=== PATIENT | female | born 1940 | race Caucasian/White ===

== ENCOUNTER 2017-09-09 08:20 | Outpatient (CLI) | payer MEDICARE | END 2017-09-09 08:21 | disposition home or self-care (01) | LOC: BICMAMMO 08:20 | PROVIDERS: ATTEND Obstetrics & Gynecology | DX: Z12.31 Encounter for screening mammogram for malignant neoplasm of breast (principal); Z80.3 Family history of malignant neoplasm of breast | CPT/HCPCS: 77063; 77067 ==

== ENCOUNTER 2018-05-29 05:21 | Inpatient (IN) | payer MEDICARE ==
[2018-05-29] MEDS ORDERED: Ondansetron PF 4 MG/2 ML Vial ONE (06:18)
[2018-05-29 06:21] LABS: #Lymphocytes 1.2 thou/uL (1.20-3.40); #Monocytes 1.3 thou/uL (0.11-0.59); #Neutrophils 11.7 thou/uL (1.40-6.50); %Basophils 0.2 % (0.0-1.0); %Lymphocytes 8.3 % (21.0-51.0); %Monocytes 9.1 % (0.0-10.0); %Neutrophils 82.5 % (42.0-75.0); Hemoglobin 14.8 g/dL (12.0-16.0); Mean Corpuscular HGB CONC 32.8 g/dL (32.0-36.0); Mean Corpuscular Hemoglobin 30.2 pg (27.0-31.0); Mean Corpuscular Volume 92.1 fL (78.0-98.0); Mean Platelet Volume 7.3 fL (7.4-10.4); Platelet Count 245 thou/uL (130-400); RBC Distribution Width 12.5 % (11.5-14.5); Red Blood Cell (RBC) Count 4.89 mill/uL (4.20-5.40); White Blood Cell (WBC) Count 14.2 thou/uL (4.8-10.8)
[2018-05-29] MEDS ORDERED: Pantoprazole 40 MG VIAL ONE (06:39)
[2018-05-29 06:44] LABS: ALT (SGPT) 29 U/L (8-55); AST (SGOT) 21 U/L (5-34); Albumin 4.1 g/dL (3.4-4.8); Alkaline Phosphatase 59 U/L (40-150); Anion Gap 16 mmol/L (10-20); BUN (Urea Nitrogen) 11 mg/dL (9.8-20.1); Bilirubin, Total 0.4 mg/dL (0.2-1.2); Calc. Creatinine Clearance 0 mL/min (70-130); Calcium 9.4 mg/dL (7.8-10.44); Carbon Dioxide 21 mmol/L (23-31); Chloride 104 mmol/L (98-107); Estimated GFR-MDRD 79; Globulin 2.9 g/dL (2.4-3.5); Glucose 156 mg/dL (83-110); Lipase 8 U/L (8-78); Potassium 3.6 mmol/L (3.5-5.1); Sodium 137 mmol/L (136-145)
[2018-05-29 07:08] LABS: Bilirubin Negative (Negative); Blood, Urine Large (Negative); Clarity CLOUDY (Clear); Glucose, Urine (Dipstick) Negative (Negative); Leukocyte Small (Negative); Nitrite Negative (Negative); Protein, Urine (Dipstick) 30 mg/dL (Neg-Trace); Specific Gravity, Urine 1.025 (1.002-1.036); Urobilinogen 0.2 mg/dL (0.2-1.0); pH, Urine 5.5 (5.0-9.0)
[2018-05-29 07:11] LABS: Hyaline Casts/LPF 0-3 HYALINE CAST LPF (0-3 Hyaline); Pathc Cast-AUWi Flag 0.43 (0-2.49); RBC/HPF GREATER THAN 50-TNTC HPF (0-3)
[2018-05-29 07:29] LABS: Bacteria/HPF Rare-Few HPF (None Seen); Yeast-All Forms None Seen HPF (None Seen)
[2018-05-29] MEDS ORDERED: MEROPENEM 1 GM/50 ML 1 GM in Premix Bag 1 BAG IVPB SCH (07:30)
--- NOTE | 2018-05-29 07:52 | CT ---
CT OF THE ABDOMEN AND PELVIS WITH IV CONTRAST: INDICATION: History of abdominal pain. FINDINGS: There is prominent wall thickening involving the splenic flexure, descending colon, and sigmoid colon suspicious for diverticulitis. No drainable fluid collection is evident. A small amount of fluid i s seen within the left pericolonic gutter. There is a small-sized hiatal hernia. There is fatty infiltration of the liver. Pancreas, adrenal glands, and spleen appear within normal limits. There is a 5 cm exophytic hypodense lesion off the lateral aspect of the right kidney that cannot be fully characterized. There are moderate calcifications involving the abdominal aorta. No lymphadenopathy is evident. There is a fat-containing umbilical hernia. The bladder is decompressed. The rectum and perirectal soft tissues are unremarkable-appearing. No free fluid is evident within the pelvis. No enlarged lymph nodes are evident within the pelvis. There is scattered degenerative and osteoarthritic change. IMPRESSION: 1. Findings of noncomplicated diverticulitis involving the sigmoid colon, descending colon, and sple gertrude flexure. Recommend appropriate colon screening after abatement of the patient's acute symptoms. 2. Exophytic hypodense lesion off the lateral aspect of the right mid kidney. Followup renal ultras ound is recommended for additional characterization. 3. Fatty liver. 4. Fat-containing umbilical hernia. 5. Normal appendix. 6. Other chronic findings as above. POS: BH
[2018-05-29] MEDS ORDERED: Ondansetron ODT 4 MG TAB PO PRN (08:33)
[2018-05-29] MEDS ORDERED: Ondansetron PF 4 MG/2 ML Vial IVP PRN (08:33)
[2018-05-29] MEDS ORDERED: HumaLOG 300 UNITS/3 ML VIAL SC PRN ×2 (09:17)
[2018-05-29] MEDS ORDERED: Dextrose 5% in Water 1,000 ML IV PRN (09:17)
[2018-05-29] MEDS ORDERED: Dextrose 50% Abboject 50 ML SYRINGE SLOW IVP PRN (09:17)
[2018-05-29] MEDS: Sodium Chloride 0.9% 1,000 ML IV SCH ×2 (09:53→18:45)
[2018-05-29 10:14] VITALS: BMI 36.1
[2018-05-29] MEDS ORDERED: ISOVUE-370 76%-LOCM 1 ML ONE (10:29)
--- NOTE | 2018-05-29 11:22 | HP ---
PRIMARY CARE PHYSICIAN: Dr. Yamilka Canseco. CHIEF COMPLAINT: Abdominal pain and hematochezia. HISTORY OF PRESENT ILLNESS: Ms. Osuna is a pleasant 77-year-old female with a past medical history of hypertension, gastroesophageal reflux disease, hyperlipidemia, who had presented to [facility] with her with some abdominal cramping and blood in the stool since yesterday. She had also reported some nausea, however, denied any vomiting. She denied any chest pain, shortness of breath, fever, chills, headache, or dizziness. She denied any recent travel, and denied any weight loss or weight gain. She reports that the cramping is intermittent and it comes and goes. In the emergency department during her initial workup, abdominal CT was obtained and findings of noncomplicated diverticulitis involving the sigmoid colon, descending colon, and splenic flexure were noted along with fatty liver, fat-containing umbilical hernia. She was given IV 40 mg Protonix along with 20 mg of Bentyl. She states that her abdominal cramping and pain had improved. She was seen and examined with her at bedside, not at the moment she appears to be in no acute distress. She had not had a bowel movement so far today and does not feel like eating. It is determined that she would be admitted under observation, placed on IV antibiotics and monitored for her current symptoms. REVIEW OF SYSTEMS: All other systems reviewed and found to be negative unless mentioned in the HPI. PAST MEDICAL HISTORY: Hypertension, gastroesophageal reflux disease, hyperlipidemia. PAST SURGICAL HISTORY: Skin biopsies of breast and vaginal. PSYCHIATRIC HISTORY: None. SOCIAL HISTORY: Denies any alcohol, tobacco, or illicit drug use. She lives at home with family. KNOWN ALLERGIES: Codeine and sulfa. HOME MEDICATIONS: 1. Amlodipine/benazepril 5/20 mg one capsule oral daily. 2. Crestor 80 mg oral once daily. 3. Nexium 40 mg oral once daily. 4. Montelukast 10 mg oral once daily. 5. Aspirin 81 mg once daily. 6. Acidophilus probiotic one tablet oral every other day. PHYSICAL EXAMINATION: VITAL SIGNS: Blood pressure 134/72, pulse 89, respirations 16, temperature 98.3 degrees Fahrenheit, O2 saturations 98% on room air. GENERAL: The patient is awake, alert, and oriented x3. Mild acute distress noted due to abdominal cramping intermittently. HEENT: Atraumatic, normocephalic. Pupils round and reactive to light. Extraocular muscles intact. Moist mucous membranes noted. NECK: Soft, supple, and nontender. No JVD noted. CARDIOVASCULAR: Positive S1 and S2. Regular rate and rhythm. No murmur or rub auscultated. RESPIRATORY: Clear to auscultation bilaterally. No wheezes, rales, or rhonchi. ABDOMEN: Soft. Mild tenderness over the left side. However, no rebound, no guarding, no pulsatile masses noted. BACK: Normal range of motion. Nontender. No CVA tenderness. MUSCULOSKELETAL: Strength 5+ bilaterally in upper and lower extremities. Moves all extremities equal. No edema noted. Gait not assessed. NEUROLOGIC: Cranial nerves 2 through 12 grossly intact. No focal deficits noted. Speech intact and normal. SKIN: Warm, dry, and intact. No lesions. No ulcerations noted. PSYCHIATRIC: Good mood and affect. LABORATORY DATA: WBC 14.2, RBC 4.89, hemoglobin 14.8, platelets 245. Sodium 137, potassium 3.6, carbon dioxide 21, anion gap 16, creatinine 0.72, estimated GFR 79, glucose 156, lipase 8. Urinalysis showed 30 protein, trace ketones, large blood, small leukocyte esterase, greater than 50 rbc's, 11 to 20 wbc's, 4 to 6 squamous epithelial cells. DIAGNOSTIC IMAGING: CT of the abdomen showed findings of noncomplicated diverticulitis involving the sigmoid colon, descending colon, splenic flexure. ASSESSMENT AND PLAN: 1. Acute diverticulitis. Make the patient n.p.o. for now and advanced diet as tolerated. Place on pain management including IV Toradol as needed. Start on IV Zosyn and monitor white count and other lab work. Depending on the patient's progress, may also consider consultation for GI versus General Surgery Services. We will hold off on any consultations at the moment as the patient is stable. 2. Hypertension, currently remains stable. Place on home medications and continue to follow vital signs. 3. Diabetes mellitus. The patient used to take metformin at home, however, she states that she was taken off this quite some time ago by her primary care physician. We will place her on insulin sliding scale with Accu-Cheks during hospital course. 4. Gastroesophageal reflux disease. Continue on PPI and monitor. 5. Deep venous thrombosis and gastrointestinal prophylaxis. 6. Code status. Full code. DISPOSITION: Pending further workup and clinical findings. Job ID: [id number]
[2018-05-29] MEDS: Piperacillin/Tazobactam 3.375 GM in Sodium Chloride 0.9% 100 ML IVPB SCH ×3 (12:48→23:42)
[2018-05-29] MEDS: Famotidine/PF 20 mg/2ml Vial SLOW IVP SCH (20:42)
[2018-05-30] MEDS: Sodium Chloride 0.9% 1,000 ML IV SCH ×4 (01:17→20:36)
[2018-05-30 05:36] LABS: #Lymphocytes 2.1 thou/uL (1.20-3.40); #Monocytes 1.6 thou/uL (0.11-0.59); #Neutrophils 10.4 thou/uL (1.40-6.50); %Basophils 0.3 % (0.0-1.0); %Eosinophils 0.2 % (0.0-10.0); %Lymphocytes 14.4 % (21.0-51.0); %Monocytes 11.6 % (0.0-10.0); %Neutrophils 73.4 % (42.0-75.0); Hemoglobin 13.2 g/dL (12.0-16.0); Mean Corpuscular HGB CONC 32.6 g/dL (32.0-36.0); Mean Corpuscular Hemoglobin 30.1 pg (27.0-31.0); Mean Corpuscular Volume 92.4 fL (78.0-98.0); Mean Platelet Volume 7.5 fL (7.4-10.4); Platelet Count 213 thou/uL (130-400); RBC Distribution Width 12.5 % (11.5-14.5); Red Blood Cell (RBC) Count 4.38 mill/uL (4.20-5.40); White Blood Cell (WBC) Count 14.2 thou/uL (4.8-10.8)
[2018-05-30 05:52] LABS: Anion Gap 14 mmol/L (10-20); BUN (Urea Nitrogen) 7 mg/dL (9.8-20.1); Calc. Creatinine Clearance 99 mL/min (70-130); Calcium 8.4 mg/dL (7.8-10.44); Carbon Dioxide 21 mmol/L (23-31); Chloride 109 mmol/L (98-107); Estimated GFR-MDRD 89; Glucose 111 mg/dL (83-110); Potassium 3.5 mmol/L (3.5-5.1); Sodium 140 mmol/L (136-145)
[2018-05-30] MEDS: Piperacillin/Tazobactam 3.375 GM in Sodium Chloride 0.9% 100 ML IVPB SCH ×3 (06:29→18:29)
--- NOTE | 2018-05-30 07:59 | PDOC.PN ---
- Subjective Encounter Start Date: 05/30/18 Encounter Start Time: 07:57 Patient yling in bed, she reports feeling better, but still with intermittent abdominal pains on left side. She has not had much intake in last 24 hours. She continues on liquid diet. She denies chest pain, but does report cough, she admits to having mild COPD and using nebulizer at home. - Objective Resuscitation Status - Order Detail: 05/29/18 09:02 Resuscitation Status Routine Co-Sign Provider: Resuscitation Status: FULL: Full Resuscitation MAR Reviewed: Yes Vital Signs & Weight: Vital Signs (12 hours) Temp Pulse Resp BP Pulse Ox 05/30/18 03:38 98.2 F 72 18 132/64 95 05/30/18 00:00 99 F 79 17 132/56 L 94 L 05/29/18 20:00 99.1 F 74 18 134/64 94 L Weight Weight 185 lb I&O: 05/29/18 05/30/18 05/31/18 06:59 06:59 06:59 Intake Total 3590 Output Total 2050 Balance 1540 Result Diagrams: 05/30/18 05:02 05/30/18 05:02 Additional Labs: Accuchecks 05/30/18 05/29/18 05/29/18 05:49 20:11 16:28 POC Glucose 122 H 125 H 152 H 05/29/18 10:44 POC Glucose 133 H Radiology Reviewed by me: Yes Phys Exam - Physical Examination Constitutional: NAD HEENT: PERRLA, moist MMs, oral pharynx no lesions Neck: no nodes, full ROM Respiratory: no wheezing, clear to auscultation bilateral Cardiovascular: RRR, no significant murmur Gastrointestinal: soft, positive bowel sounds Mild tenderness left side Musculoskeletal: no edema, pulses present Neurological: non-focal, moves all 4 limbs Lymphatic: no nodes Psychiatric: normal affect, A&O x 3 Skin: no rash, cap refill <2 seconds Dx/Plan (1) Diverticulitis Code(s): K57.92 - DVTRCLI OF INTEST, PART UNSP, W/O PERF OR ABSCESS W/O BLEED Status: Acute (2) Hypertension Code(s): I10 - ESSENTIAL (PRIMARY) HYPERTENSION Status: Acute (3) Leukocytosis Code(s): D72.829 - ELEVATED WHITE BLOOD CELL COUNT, UNSPECIFIED Status: Acute (4) GERD (gastroesophageal reflux disease) Code(s): K21.9 - GASTRO-ESOPHAGEAL REFLUX DISEASE WITHOUT ESOPHAGITIS Status: Acute (5) Diabetes mellitus Code(s): E11.9 - TYPE 2 DIABETES MELLITUS WITHOUT COMPLICATIONS Status: Acute - Plan cont current plan of care, continue antibiotics * Continue IV zosyn, plan to transition to oral cipro and flagyl prior to discharge * Add duonebs as she uses this at home when needed * Continue liquid diet and advance as tolerated * Continue home medications * Discharge likely once she is able to tolerate oral intake
[2018-05-30] MEDS ORDERED: ROSUVASTATIN CALCIUM PO SCH (09:00)
[2018-05-30] MEDS: Lactinex Tablet PO SCH (09:27)
[2018-05-30] MEDS: Famotidine/PF 20 mg/2ml Vial SLOW IVP SCH ×2 (09:27→20:33)
[2018-05-30] MEDS: Aspirin 81 mg Enteric Coated Tablet PO SCH (09:27)
[2018-05-30] MEDS: Amlodipine 5 mg/Benazepril 20 mg CAP PO SCH (09:27)
--- NOTE | 2018-05-30 16:36 | PDOC.EVN ---
Event Note - Event Note Event Note: patient interviewed, findings reviewed with Andrey GAO, agree with management
[2018-05-30] MEDS ORDERED: Acetaminophen 325 MG TAB PO PRN (17:52)
[2018-05-30] MEDS: Rosuvastatin 20 MG TAB PO SCH (20:32)
[2018-05-30] MEDS: Montelukast Sodium 10 mg Tablet PO SCH (20:32)
[2018-05-31] MEDS: Piperacillin/Tazobactam 3.375 GM in Sodium Chloride 0.9% 100 ML IVPB SCH ×5 (00:52→23:37)
[2018-05-31] MEDS: Sodium Chloride 0.9% 1,000 ML IV SCH (05:50)
[2018-05-31] MEDS: Famotidine/PF 20 mg/2ml Vial SLOW IVP SCH ×2 (08:38→20:09)
[2018-05-31] MEDS: Lactinex Tablet PO SCH (08:39)
[2018-05-31] MEDS: Aspirin 81 mg Enteric Coated Tablet PO SCH (08:39)
[2018-05-31 09:03] LABS: #Eosinphils 0.1 thou/uL (0.0-0.7); #Lymphocytes 1.5 thou/uL (1.20-3.40); #Monocytes 1.2 thou/uL (0.11-0.59); %Basophils 0.2 % (0.0-1.0); %Eosinophils 0.6 % (0.0-10.0); %Monocytes 8.8 % (0.0-10.0); %Neutrophils 79.3 % (42.0-75.0); Hemoglobin 13.2 g/dL (12.0-16.0); Mean Corpuscular HGB CONC 32.7 g/dL (32.0-36.0); Mean Corpuscular Hemoglobin 30.3 pg (27.0-31.0); Mean Corpuscular Volume 92.4 fL (78.0-98.0); Mean Platelet Volume 7.4 fL (7.4-10.4); Platelet Count 219 thou/uL (130-400); RBC Distribution Width 12.4 % (11.5-14.5); Red Blood Cell (RBC) Count 4.36 mill/uL (4.20-5.40); White Blood Cell (WBC) Count 13.9 thou/uL (4.8-10.8)
[2018-05-31 09:22] LABS: Anion Gap 10 mmol/L (10-20); BUN (Urea Nitrogen) 4 mg/dL (9.8-20.1); Calc. Creatinine Clearance 92 mL/min (70-130); Calcium 8.4 mg/dL (7.8-10.44); Carbon Dioxide 23 mmol/L (23-31); Chloride 108 mmol/L (98-107); Estimated GFR-MDRD 82; Glucose 181 mg/dL (83-110); Sodium 138 mmol/L (136-145)
[2018-05-31] MEDS: Amlodipine 5 mg/Benazepril 20 mg CAP PO SCH (11:07)
--- NOTE | 2018-05-31 15:09 | PDOC.PN ---
- Subjective Encounter Start Date: 05/31/18 Encounter Start Time: 15:07 Patient lying in bed, she reports intermittent abdominal pain improved today with bentyl. Tolerated breakfast. She reports persistent loose stools but reports bleeding improved. Denies chest pain or shortness of breath. - Objective Resuscitation Status - Order Detail: 05/29/18 09:02 Resuscitation Status Routine Co-Sign Provider: Resuscitation Status: FULL: Full Resuscitation MAR Reviewed: Yes Vital Signs & Weight: Vital Signs (12 hours) Temp Pulse Resp BP Pulse Ox 05/31/18 12:43 98.4 F 88 16 140/85 97 05/31/18 08:14 98.2 F 82 16 130/74 95 05/31/18 08:00 95 05/31/18 04:00 98.4 F 74 16 136/79 93 L Weight Weight 185 lb I&O: 05/30/18 05/31/18 06/01/18 06:59 06:59 06:59 Intake Total 3590 3637 360 Output Total 2050 1100 Balance 1540 2537 360 Result Diagrams: 05/31/18 08:48 05/31/18 08:48 Additional Labs: Accuchecks 05/31/18 05/30/18 06:07 16:48 POC Glucose 119 H 97 Radiology Reviewed by me: Yes Phys Exam - Physical Examination Constitutional: NAD HEENT: PERRLA, moist MMs, oral pharynx no lesions Neck: no nodes, full ROM Respiratory: no wheezing, clear to auscultation bilateral Cardiovascular: RRR, no significant murmur Gastrointestinal: soft, positive bowel sounds mild TTP Musculoskeletal: no edema, edema present Neurological: non-focal, moves all 4 limbs Lymphatic: no nodes Psychiatric: normal affect, A&O x 3 Skin: no rash, cap refill <2 seconds Dx/Plan (1) Diverticulitis Code(s): K57.92 - DVTRCLI OF INTEST, PART UNSP, W/O PERF OR ABSCESS W/O BLEED Status: Acute (2) Hypertension Code(s): I10 - ESSENTIAL (PRIMARY) HYPERTENSION Status: Acute (3) Leukocytosis Code(s): D72.829 - ELEVATED WHITE BLOOD CELL COUNT, UNSPECIFIED Status: Acute (4) GERD (gastroesophageal reflux disease) Code(s): K21.9 - GASTRO-ESOPHAGEAL REFLUX DISEASE WITHOUT ESOPHAGITIS Status: Acute (5) Diabetes mellitus Code(s): E11.9 - TYPE 2 DIABETES MELLITUS WITHOUT COMPLICATIONS Status: Acute - Plan cont current plan of care, continue antibiotics * Continue IV abx * Replace potassium * Monitor CBC and BMP * Continue bentyl as needed * WBC trending down * We will check her in am and WBC continuing to trend down and pain controlled will likely switch to PO abx and D/C home
[2018-05-31] MEDS: Rosuvastatin 20 MG TAB PO SCH (20:08)
[2018-05-31] MEDS: Montelukast Sodium 10 mg Tablet PO SCH (20:09)
[2018-06-01] MEDS: Piperacillin/Tazobactam 3.375 GM in Sodium Chloride 0.9% 100 ML IVPB SCH ×2 (05:33→12:24)
[2018-06-01 06:31] LABS: #Eosinphils 0.2 thou/uL (0.0-0.7); #Lymphocytes 2.3 thou/uL (1.20-3.40); #Monocytes 1.4 thou/uL (0.11-0.59); #Neutrophils 9.3 thou/uL (1.40-6.50); %Basophils 0.3 % (0.0-1.0); %Eosinophils 1.9 % (0.0-10.0); %Lymphocytes 17.5 % (21.0-51.0); %Monocytes 10.3 % (0.0-10.0); Hemoglobin 13.6 g/dL (12.0-16.0); Mean Corpuscular HGB CONC 32.3 g/dL (32.0-36.0); Mean Corpuscular Hemoglobin 29.8 pg (27.0-31.0); Mean Corpuscular Volume 92.3 fL (78.0-98.0); Mean Platelet Volume 7.3 fL (7.4-10.4); Platelet Count 273 thou/uL (130-400); RBC Distribution Width 12.4 % (11.5-14.5); Red Blood Cell (RBC) Count 4.56 mill/uL (4.20-5.40); White Blood Cell (WBC) Count 13.3 thou/uL (4.8-10.8)
[2018-06-01 06:55] LABS: Anion Gap 15 mmol/L (10-20); BUN (Urea Nitrogen) 5 mg/dL (9.8-20.1); Calc. Creatinine Clearance 91 mL/min (70-130); Calcium 9.1 mg/dL (7.8-10.44); Carbon Dioxide 22 mmol/L (23-31); Chloride 105 mmol/L (98-107); Estimated GFR-MDRD 80; Glucose 103 mg/dL (83-110); Potassium 3.3 mmol/L (3.5-5.1); Sodium 139 mmol/L (136-145)
[2018-06-01] MEDS: Aspirin 81 mg Enteric Coated Tablet PO SCH (09:06)
[2018-06-01] MEDS: Amlodipine 5 mg/Benazepril 20 mg CAP PO SCH (09:07)
[2018-06-01] MEDS: Famotidine/PF 20 mg/2ml Vial SLOW IVP SCH (09:07)
[2018-06-01] MEDS: Lactinex Tablet PO SCH (09:07)
--- NOTE | 2018-06-01 13:12 | PDOC.EVN ---
Event Note - Event Note Event Note: Saw patient with [facility]. She is doing well. No abdominal pain. Tolerating liquid diet. No nausea. No abdominal TTP. CT reviewed. Has a 5 cm exophytic, hypoechoic lesion. Diverticulitis is improving. Change to regular diet. Convert to po abx. Reviewed CT with patient. She is aware of the lesion. Dr. Teixeira is aware of it and she has had prior US for evaluation. Dr. Teixeira was not concerned about it. Looks like a cyst on CT to me. Anticipate discharge in am.
[2018-06-01] MEDS: metroNIDAZOLE 500 MG TAB PO SCH ×2 (15:41→20:52)
[2018-06-01] MEDS ORDERED: Potassium Chloride 20 MEQ TAB PO SCH (17:30)
--- NOTE | 2018-06-01 17:33 | PDOC.PN ---
- Subjective Encounter Start Date: 06/01/18 Encounter Start Time: 17:32 Patient lying in bed, feels better today. No abdominal pain. She feels ready to advance to regular diabetic diet. Able to ambulate without pain. WBC trending down. Denies chest pain, shortness of breath or abdominal pain. Loose stools improving. Discussed discharge with patient, but she reports she would feel comfortable upgraded diet and watching how she tolerates - Objective Resuscitation Status - Order Detail: 05/29/18 09:02 Resuscitation Status Routine Co-Sign Provider: Resuscitation Status: FULL: Full Resuscitation MAR Reviewed: Yes Vital Signs & Weight: Vital Signs (12 hours) Temp Pulse Resp BP Pulse Ox 06/01/18 16:50 99.6 F 79 18 118/66 93 L 06/01/18 12:34 97.9 F 78 20 130/78 100 06/01/18 08:27 98.0 F 79 18 136/74 94 L Weight Weight 185 lb I&O: 05/31/18 06/01/18 06/02/18 06:59 06:59 06:59 Intake Total 3637 2560 360 Output Total 1100 Balance 2537 2560 360 Result Diagrams: 06/01/18 06:06 06/01/18 06:06 Additional Labs: Accuchecks 06/01/18 06/01/18 06/01/18 16:32 11:14 05:00 POC Glucose 115 H 90 102 05/31/18 05/31/18 20:50 16:53 POC Glucose 101 107 Phys Exam - Physical Examination Constitutional: NAD HEENT: moist MMs Neck: supple Respiratory: no wheezing, clear to auscultation bilateral Cardiovascular: RRR, no significant murmur Gastrointestinal: soft, non-tender, positive bowel sounds Musculoskeletal: no edema, pulses present Neurological: non-focal, moves all 4 limbs Lymphatic: no nodes Psychiatric: A&O x 3 Skin: cap refill <2 seconds Dx/Plan (1) Diverticulitis Code(s): K57.92 - DVTRCLI OF INTEST, PART UNSP, W/O PERF OR ABSCESS W/O BLEED Status: Acute (2) Hypertension Code(s): I10 - ESSENTIAL (PRIMARY) HYPERTENSION Status: Acute (3) Leukocytosis Code(s): D72.829 - ELEVATED WHITE BLOOD CELL COUNT, UNSPECIFIED Status: Acute (4) GERD (gastroesophageal reflux disease) Code(s): K21.9 - GASTRO-ESOPHAGEAL REFLUX DISEASE WITHOUT ESOPHAGITIS Status: Chronic (5) Diabetes mellitus Code(s): E11.9 - TYPE 2 DIABETES MELLITUS WITHOUT COMPLICATIONS Status: Chronic - Plan cont current plan of care, continue antibiotics * Advance diet to diabetic * D/C IV abx and transition to oral abx cipro/flagyl * Patient has not needed bentyl in 2 days * Replace potassium * Patient able to ambulate without complaints * WBC trending down * Monitor on upgraded diet, if able to tolerate likely discharged in the next 24 hours
[2018-06-01] MEDS: Ciprofloxacin 500 MG TAB PO SCH (20:52)
[2018-06-01] MEDS: Montelukast Sodium 10 mg Tablet PO SCH (20:52)
[2018-06-01] MEDS: Famotidine 20 MG TAB PO SCH (20:53)
[2018-06-01] MEDS: Rosuvastatin 20 MG TAB PO SCH (20:53)
[2018-06-02] MEDS: Ciprofloxacin 500 MG TAB PO SCH (05:28)
[2018-06-02 05:54] LABS: #Basophils 0.1 thou/uL (0.0-0.2); #Eosinphils 0.3 thou/uL (0.0-0.7); #Lymphocytes 1.9 thou/uL (1.20-3.40); #Monocytes 1.2 thou/uL (0.11-0.59); #Neutrophils 6.7 thou/uL (1.40-6.50); %Basophils 0.6 % (0.0-1.0); %Eosinophils 2.6 % (0.0-10.0); %Lymphocytes 18.9 % (21.0-51.0); %Monocytes 11.6 % (0.0-10.0); %Neutrophils 66.3 % (42.0-75.0); Hemoglobin 12.3 g/dL (12.0-16.0); Mean Corpuscular HGB CONC 32.7 g/dL (32.0-36.0); Mean Corpuscular Hemoglobin 30.2 pg (27.0-31.0); Mean Corpuscular Volume 92.3 fL (78.0-98.0); Mean Platelet Volume 7.4 fL (7.4-10.4); Platelet Count 276 thou/uL (130-400); RBC Distribution Width 12.4 % (11.5-14.5); Red Blood Cell (RBC) Count 4.08 mill/uL (4.20-5.40); White Blood Cell (WBC) Count 10.1 thou/uL (4.8-10.8)
[2018-06-02 06:13] LABS: Anion Gap 12 mmol/L (10-20); BUN (Urea Nitrogen) 6 mg/dL (9.8-20.1); Calc. Creatinine Clearance 96 mL/min (70-130); Calcium 8.9 mg/dL (7.8-10.44); Carbon Dioxide 24 mmol/L (23-31); Chloride 106 mmol/L (98-107); Estimated GFR-MDRD 86; Glucose 99 mg/dL (83-110); Potassium 3.4 mmol/L (3.5-5.1); Sodium 139 mmol/L (136-145)
[2018-06-02] MEDS: Amlodipine 5 mg/Benazepril 20 mg CAP PO SCH (08:56)
[2018-06-02] MEDS: Aspirin 81 mg Enteric Coated Tablet PO SCH (08:56)
[2018-06-02] MEDS: Lactinex Tablet PO SCH (08:56)
[2018-06-02] MEDS: Famotidine 20 MG TAB PO SCH (08:57)
[2018-06-02] MEDS: metroNIDAZOLE 500 MG TAB PO SCH (08:57)
--- NOTE | 2018-06-02 09:33 | PDOC.PN ---
- Subjective Encounter Start Date: 06/02/18 Encounter Start Time: 11:00 Subjective: Patient reports no more abdominal pain. Eating normal diet without -: nausea or vomiting. Appetitite picking up a little bit. Stool still a -: little loose. - Objective Resuscitation Status - Order Detail: 05/29/18 09:02 Resuscitation Status Routine Co-Sign Provider: Resuscitation Status: FULL: Full Resuscitation MAR Reviewed: Yes Vital Signs & Weight: Vital Signs (12 hours) Temp Pulse Resp BP Pulse Ox 06/02/18 07:42 98.4 F 72 18 149/67 H 93 L 06/02/18 00:18 98.2 F 77 20 138/85 94 L Weight Weight 185 lb I&O: 06/01/18 06/02/18 06/03/18 06:59 06:59 06:59 Intake Total 2560 2490 Balance 2560 2490 Result Diagrams: 06/02/18 05:09 06/02/18 05:09 Additional Labs: Accuchecks 06/02/18 06/01/18 06/01/18 05:09 22:21 16:32 POC Glucose 106 89 115 H 06/01/18 05/30/18 11:14 20:32 POC Glucose 90 120 H Phys Exam - Physical Examination Constitutional: NAD HEENT: moist MMs Respiratory: no wheezing, no rales, no rhonchi Cardiovascular: RRR, no significant murmur Gastrointestinal: soft, non-tender, positive bowel sounds Neurological: non-focal, moves all 4 limbs Psychiatric: normal affect, A&O x 3 Dx/Plan (1) Diverticulitis Code(s): K57.92 - DVTRCLI OF INTEST, PART UNSP, W/O PERF OR ABSCESS W/O BLEED Status: Acute (2) Hypertension Code(s): I10 - ESSENTIAL (PRIMARY) HYPERTENSION Status: Chronic (3) Leukocytosis Code(s): D72.829 - ELEVATED WHITE BLOOD CELL COUNT, UNSPECIFIED Status: Resolved (4) Diabetes mellitus Code(s): E11.9 - TYPE 2 DIABETES MELLITUS WITHOUT COMPLICATIONS Status: Chronic (5) GERD (gastroesophageal reflux disease) Code(s): K21.9 - GASTRO-ESOPHAGEAL REFLUX DISEASE WITHOUT ESOPHAGITIS Status: Chronic - Plan cont current plan of care, continue antibiotics d/c home today * . - Discharge Day Encounter end time: 11:15
[2018-06-02 12:31] VITALS: BP 121/77; TEMP 98.3
--- NOTE | 2018-06-02 14:28 | DIS ---
DATE OF ADMISSION: 05/29/2018 DATE OF DISCHARGE: 06/02/2018 PRIMARY CARE PHYSICIAN: Dr. Canseco. REASON FOR ADMISSION: Abdominal pain with hematochezia. DIAGNOSES AT DISCHARGE: 1. Acute diverticulitis. 2. Hypertension. 3. Diabetes mellitus type 2. 4. Gastroesophageal reflux disease. PROCEDURES: CT of the abdomen and pelvis with IV contrast showing noncomplicated diverticulitis of the sigmoid colon, descending colon and splenic flexure. CONSULTATIONS: None. SUMMARY OF HOSPITAL COURSE: This is a 77-year-old white female who presented with abdominal pain, cramping and blood in stool. CT scan showed acute diverticulitis. The patient was treated with IV antibiotics and IV fluids. She improved over the course of hospitalization and had resolution of her pain. She did have some nausea and this resolved as well. She was eating well at time of discharge. The patient is being discharged home. DISCHARGE MANAGEMENT: Discharged home. ACTIVITY: As tolerated. DIET: Diabetic diet. FOLLOW UP: With Dr. Canseco later this week and with Dr. Salinas later this week as well. DISCHARGE MEDICATIONS: 1. Ciprofloxacin 500 mg twice a day for five more days for total 10 days of antibiotics. 2. Metronidazole 500 mg 3 times a day for five more days. 3. Resume amlodipine/benazepril 5/20 mg one cap daily. 4. Aspirin 81 mg daily. 5. Acidophilus one tablet every 2 days. 6. Singulair 10 mg daily. 7. Crestor 80 mg daily. 8. Nexium 40 mg daily. Job ID: [id number]
== END 2018-06-02 12:37 | disposition home or self-care (01) | DRG 392 ==
LOC: ERS 05:21 → 2SW 07:57 → OBSVTOIN 07:57 → T4-B 05-30 20:21
PROVIDERS: ADMIT Family Medicine; ATTEND Family Medicine
DX: K57.32 Diverticulitis of large intestine without perforation or abscess without bleeding (principal); K92.1 Melena; J44.9 Chronic obstructive pulmonary disease, unspecified; I10 Essential (primary) hypertension; K21.9 Gastro-esophageal reflux disease without esophagitis; E78.5 Hyperlipidemia, unspecified; E11.9 Type 2 diabetes mellitus without complications; K76.0 Fatty (change of) liver, not elsewhere classified; K42.9 Umbilical hernia without obstruction or gangrene; N28.1 Cyst of kidney, acquired; Z88.2 Allergy status to sulfonamides; Z88.8 Allergy status to other drugs, medicaments and biological substances; Z79.899 Other long term (current) drug therapy; Z79.82 Long term (current) use of aspirin
CPT/HCPCS: 36415; 36416; 74177; 80048; 80053; 81003; 81015; 83690; 85025; 86850; 86900; 86901; 94640; 96372; 96374; C9113; J0500; J2185; J2405; J2543; J7050; J7620; Q9966; S0028

== ENCOUNTER 2018-09-17 10:50 | Outpatient (CLI) | payer MEDICARE ==
--- NOTE | 2018-09-17 11:27 | MMO ---
Bilateral MAMMO Bilat Screen [facility]. CLINICAL HISTORY: Patient is 78 years old and is seen for screening. The patient has no personal history of cancer. VIEWS: The views performed were: bilateral craniocaudal with tomosynthesis and bilateral mediolateral oblique with tomosynthesis. FILMS COMPARED: The present examination has been compared to a prior imaging study performed at [facility] on 09/09/2017. MAMMOGRAM FINDINGS: The breasts are almost entirely fat. There are stable benign appearing calcifications seen in both breasts. There are no suspicious masses, suspicious calcifications, or new areas of architectural distortion. IMPRESSION: THERE IS NO MAMMOGRAPHIC EVIDENCE OF MALIGNANCY. A ROUTINE FOLLOW-UP MAMMOGRAM IN 1 YEAR IS RECOMMENDED. THE RESULTS OF THIS EXAM WERE SENT TO THE PATIENT. ACR BI-RADS Category 2 - Benign finding MAMMOGRAPHY NOTE: 1. A negative mammogram report should not delay a biopsy if a dominant of clinically suspicious mass is present. 2. Approximately 10% to 15% of breast cancers are not detected by mammography. 3. Adenosis and dense breasts may obscure an underlying neoplasm.
== END 2018-09-17 10:51 | disposition home or self-care (01) ==
LOC: BICMAMMO 10:50
PROVIDERS: ATTEND Obstetrics & Gynecology
DX: Z12.31 Encounter for screening mammogram for malignant neoplasm of breast (principal)
CPT/HCPCS: 77063; 77067

== ENCOUNTER 2019-01-16 08:34 | Outpatient (CLI) | payer MEDICARE ==
--- NOTE | 2019-01-16 10:13 | CT ---
CTA ABDOMEN AND PELVIS WITH BILATERAL LOWER EXTREMITY RUNOFF: INDICATIONS: History of ischemic colitis and adenomatous polyp. TECHNIQUE: Multiple CTA images were obtained of the abdomen and pelvis utilizing IV contrast and 3D reformatted imaging. Axial, coronal and sagittal reformatted images were constructed from the raw data. FINDINGS: ABDOMEN: Lung bases: Clear Liver: No focal lesion. Gallbladder: Normal appearing. Pancreas: Normal. Adrenal glands: Normal. Spleen: Normal. Kidneys: There is a 5.1 cm cyst superior pole right kidney. There is a smaller subcentimeter cyst inv olving the inferior pole of the right kidney. No focal left renal lesion is evident. Retroperitoneum of the upper abdomen: No lymphadenopathy or free fluid is identified. Pelvis: Small and large bowel: There is scattered colonic diverticulosis. There is a normal appendix in the r ight lower quadrant. The small bowel is of normal caliber. Bladder: Decompressed Rectal and perirectal soft tissues:Normal. Reproductive structures: Normal. Free fluid in pelvis: No free fluid is evident. Lymphadenopathy pelvis: No lymphadenopathy is evident. Osseous structures: No acute osseous abnormality. No destructive osteolytic or osteoblastic lesion i s identified. There is scattered degenerative and osteoarthritic changes. Vasculature: Aorta: In There is moderate atherosclerotic irregularity involving the abdominal aorta. Celiac:Normal in caliber without evidence of stenosis or occlusion. SMA:Normal in caliber without evidence of stenosis or occlusion. Renal arteries:Normal in caliber without evidence of stenosis or occlusion. KRISHNA:Normal in caliber without evidence of stenosis or occlusion. Right common iliac artery: Normal in caliber without evidence of stenosis or occlusion. Right external iliac artery: Normal in caliber without evidence of stenosis or occlusion. Right internal iliac artery: Normal in caliber without evidence of stenosis or occlusion. Left common iliac artery: Normal in caliber without evidence of stenosis or occlusion. Left external iliac artery: Normal in caliber without evidence of stenosis or occlusion.. Left internal iliac artery: Normal in caliber without evidence of stenosis or occlusion. Additional findings: None. IMPRESSION: 1. No hemodynamically significant stenosis, occlusion or aneurysmal formation.
== END 2019-01-16 08:35 | disposition home or self-care (01) ==
LOC: BICCT 08:34
PROVIDERS: ATTEND Internal Medicine Gastroenterology
DX: D12.6 Benign neoplasm of colon, unspecified (principal); K55.9 Vascular disorder of intestine, unspecified
CPT/HCPCS: 74174; 82565

== ENCOUNTER 2020-01-08 09:13 | Outpatient (CLI) | payer MEDICARE ==
--- NOTE | 2020-01-08 09:44 | MMO ---
Bilateral MAMMO Bilat Screen [facility]. CLINICAL HISTORY: Patient is 79 years old and is seen for screening. The patient has no personal history of cancer. VIEWS: The views performed were: bilateral craniocaudal with tomosynthesis and bilateral mediolateral oblique with tomosynthesis. FILMS COMPARED: The present examination has been compared to prior imaging studies performed at [facility] on 09/09/2017 and 09/17/2018. This study has been interpreted with the assistance of computer-aided detection. MAMMOGRAM FINDINGS: The breasts are almost entirely fat. There are benign appearing calcifications seen in both breasts. There are no suspicious masses, suspicious calcifications, or new areas of architectural distortion. IMPRESSION: THERE IS NO MAMMOGRAPHIC EVIDENCE OF MALIGNANCY. A ROUTINE FOLLOW-UP MAMMOGRAM IN 1 YEAR IS RECOMMENDED. THE RESULTS OF THIS EXAM WERE SENT TO THE PATIENT. ACR BI-RADS Category 2 - Benign finding MAMMOGRAPHY NOTE: 1. A negative mammogram report should not delay a biopsy if a dominant of clinically suspicious mass is present. 2. Approximately 10% to 15% of breast cancers are not detected by mammography. 3. Adenosis and dense breasts may obscure an underlying neoplasm. Reported by: KAM ELIZABETH MD Electonically Signed: [id number]
== END 2020-01-08 09:14 | disposition home or self-care (01) ==
LOC: BICMAMMO 09:13
PROVIDERS: ATTEND Internal Medicine
DX: Z12.31 Encounter for screening mammogram for malignant neoplasm of breast (principal)
CPT/HCPCS: 77063; 77067

== ENCOUNTER 2020-04-07 07:20 | Outpatient (CLI) | payer MEDICARE ==
--- NOTE | 2020-04-07 08:23 | CT ---
EXAM: CT Abdomen Pelvis W WO con PROVIDED CLINICAL HISTORY: Hematuria COMPARISON: 05/29/2018 FINDINGS: The visualized lung bases are free of significant opacity. There is a small hiatal hernia. 6 cm simple exophytic right renal cyst. Subcentimeter right renal hypodensities too small to characte rize but likely cysts and stable with respect to prior. No evidence for urinary tract calculi or hydronephrosis. The delayed images demonstrate no evidence for filling defect involving the renal col lecting systems, ureters or urinary bladder. There is no bowel dilatation, inflammatory fat stranding, free fluid or lymph node enlargement appare nt. Uterus and adnexa are suboptimally evaluated by CT but appear grossly normal. Sigmoid colonic diverticulosis without CT evidence for diverticulitis. Scattered atherosclerotic vascular calcifications are seen without evidence for high-grade calcified stenosis. The osseous structures demonstrate no concerning lytic or blastic lesions. Lumbar spine degenerative changes are seen. IMPRESSION: An etiology for the patient's hematuria is not evident on this examination.
[2020-04-07] MEDS ORDERED: Iopamidol-370 76% 500 ML 1 ML ONE (11:12)
== END 2020-04-07 07:21 | disposition home or self-care (01) ==
LOC: BICCT 07:20
PROVIDERS: ATTEND Urology
DX: R31.9 Hematuria, unspecified (principal)
CPT/HCPCS: 74178; 82565; Q9967

== ENCOUNTER 2021-01-09 08:38 | Outpatient (CLI) | payer MEDICARE | END 2021-01-09 08:39 | disposition home or self-care (01) | LOC: BICMAMMO 08:38 | PROVIDERS: ATTEND Internal Medicine | DX: Z12.31 Encounter for screening mammogram for malignant neoplasm of breast (principal); Z91.89 Other specified personal risk factors, not elsewhere classified; Z80.3 Family history of malignant neoplasm of breast | CPT/HCPCS: 77063; 77067 ==

== ENCOUNTER 2022-01-11 08:50 | Outpatient (CLI) | payer MEDICARE | END 2022-01-11 08:51 | disposition home or self-care (01) | LOC: BICMAMMO 08:50 | PROVIDERS: ATTEND Internal Medicine | DX: Z12.31 Encounter for screening mammogram for malignant neoplasm of breast (principal); Z80.3 Family history of malignant neoplasm of breast; Z91.89 Other specified personal risk factors, not elsewhere classified | CPT/HCPCS: 77063; 77067 ==

== ENCOUNTER 2023-02-07 09:02 | Outpatient (CLI) | payer MEDICARE | END 2023-02-07 09:03 | disposition home or self-care (01) | LOC: BICMAMMO 09:02 | PROVIDERS: ATTEND Internal Medicine | DX: Z12.31 Encounter for screening mammogram for malignant neoplasm of breast (principal); Z80.3 Family history of malignant neoplasm of breast; Z91.89 Other specified personal risk factors, not elsewhere classified | CPT/HCPCS: 77063; 77067 ==

== ENCOUNTER 2024-02-12 10:40 | Outpatient (CLI) | payer MEDICARE | END 2024-02-12 10:41 | disposition home or self-care (01) | LOC: BICMAMMO 10:40 | PROVIDERS: ATTEND Internal Medicine | DX: Z12.31 Encounter for screening mammogram for malignant neoplasm of breast (principal); Z80.3 Family history of malignant neoplasm of breast; Z91.89 Other specified personal risk factors, not elsewhere classified | CPT/HCPCS: 77063; 77067 ==

== ENCOUNTER 2025-02-25 08:52 | Outpatient (CLI) | payer MEDICARE | END 2025-02-25 08:53 | disposition home or self-care (01) | LOC: BICMAMMO 08:52 | PROVIDERS: ATTEND Internal Medicine | DX: Z12.31 Encounter for screening mammogram for malignant neoplasm of breast (principal); N64.89 Other specified disorders of breast; Z80.3 Family history of malignant neoplasm of breast; Z91.89 Other specified personal risk factors, not elsewhere classified | CPT/HCPCS: 77063; 77067 ==